=== PATIENT | female | born 1945 | race Caucasian/White ===

== ENCOUNTER 2016-05-06 09:19 | Inpatient (IN) | payer MEDICARE, OTHER ==
[~2016-05-06] VITALS: Ht 149.1 cm; Wt 57.0 kg
[2016-05-06] MEDS ORDERED: FOLI5CAP PO (09:43)
[2016-05-06] MEDS ORDERED: CALC1TAB63 PO (09:43)
[2016-05-06] MEDS ORDERED: METH2.5T PO (09:43)
[2016-05-23] MEDS ORDERED: HYDR-3288 PO (07:25)
[2016-05-23] MEDS ORDERED: ENOX40P SQ (07:26)
[2016-05-23] MEDS ORDERED: ACET-703 PO (07:48)
[2016-05-23 07:50] VITALS: BP 153/86; PULSE 80; RESP 20; TEMP 97.8; O2SAT 98
[2016-05-23] MEDS ORDERED: VANCOMYCIN 1000 MG/NS 250 ML (for <70 kg) IV SCH ×2 (08:00)
[2016-05-23] MEDS ORDERED: INSULIN HUMAN REGULAR 1,000 UNITS/10 ML VIAL SQ PRN (08:00)
[2016-05-23] MEDS ORDERED: LACTATED RINGER'S 1000 ML IV SCH (08:00)
[2016-05-23] MEDS ORDERED: CHLORHEXIDINE GLUCONATE 4% SOLN 120 ML BTL TOP SCH (08:00)
[2016-05-23] MEDS ORDERED: POVIDONE IODINE 7.5% SCRUB 118 ML BOTTLE TOP SCH (08:00)
[2016-05-23] MEDS ORDERED: METOPROLOL TARTRATE 25 MG TAB PO PRN (08:00)
[2016-05-23] MEDS ORDERED: ceFAZolin 2 GM PREMIX 50 ML IV SCH (08:00)
[2016-05-23] MEDS ORDERED: SODIUM CHLORID 0.9% 500 ML IV SCH (08:00)
[2016-05-23] MEDS ORDERED: EXPAREL PERI-ARTICULAR INJECTION (TOTAL VOL. 60 ML) P-ARTICULR SCH ×2 (09:00)
[2016-05-23] MEDS ORDERED: TRANEXAMIC ACID IV SCH (09:00)
[2016-05-23] MEDS ORDERED: TRANEXAMIC PERI-ARTICULAR 3,000 MG/NS 100 ML P-ARTICULR SCH ×2 (09:00)
[2016-05-23] MEDS ORDERED: SODIUM CHLORIDE 0.9% IV SCH (09:00)
[2016-05-23] MEDS: SODIUM CHLOR 0.9% 1000 ML INJ 1,000 ML IV SCH (09:01)
[2016-05-23] MEDS ORDERED: MORPHINE SULFATE 4 MG/ML INJ IV PUSH PRN (09:15)
[2016-05-23] MEDS ORDERED: MAGNESIUM HYDROXIDE SUSP 30 ML CUP PO PRN (09:15)
[2016-05-23] MEDS ORDERED: ZOLPIDEM TARTRATE 5 MG TAB PO PRN (09:15)
[2016-05-23] MEDS ORDERED: NALOXONE HCL 0.4 MG/ML AMP IV PRN (09:15)
[2016-05-23] MEDS ORDERED: Post-op Orders (for Pharmacy) MISC XX ONE (09:15)
[2016-05-23] MEDS ORDERED: BISACODYL 10 MG SUPP PR PRN (09:15)
[2016-05-23] MEDS ORDERED: ACETAMINOPHEN/HYDROcodone 325 MG/7.5 MG TAB PO PRN (09:15)
[2016-05-23] MEDS ORDERED: diphenhydrAMINE HCL 50 MG/ML VIAL IV PRN (09:15)
[2016-05-23] MEDS ORDERED: SODIUM CHLORIDE 0.9% FLUSH 5 ML FLUSH IVF PRN (09:15)
[2016-05-23] MEDS ORDERED: ALUMINUM/MAGNESIUM/SIMETH 30 ML CUP PO PRN (09:15)
[2016-05-23] MEDS ORDERED: GENTAMICIN SULFATE 80 MG/2 ML VIAL ONE (09:30)
[2016-05-23] MEDS ORDERED: DEXAMETHASONE SOD PHOS 4 MG/ML VIAL ONE (09:54)
[2016-05-23] MEDS ORDERED: FAMOTIDINE 20 MG/2 ML VIAL ONE (10:03)
[2016-05-23] MEDS ORDERED: ACETAMINOPHEN 1000 MG/100 ML VIAL IV ONE (10:03)
[2016-05-23] MEDS ORDERED: KETAMINE HCL 500 MG/5 ML VIAL ONE (10:03)
[2016-05-23] MEDS ORDERED: LACTATED RINGER'S 1000 ML INJ 1,000 ML IV ONE (12:00)
[2016-05-23] MEDS ORDERED: ePHEDrine/NS 50 MG/5 ML SYR IV ONE (12:00)
[2016-05-23] MEDS ORDERED: NEOSTIGMINE 3 MG/3 ML SYR IV ONE (12:00)
[2016-05-23] MEDS ORDERED: PROPOFOL 200 MG/20 ML AMP IV ONE (12:00)
[2016-05-23] MEDS ORDERED: PHENYLEPH/NS 1000 MCG/10 ML SYR IV ONE (12:00)
[2016-05-23] MEDS ORDERED: ONDANSETRON HCL 4 MG/2 ML VIAL IV PUSH ONE (12:00)
[2016-05-23] MEDS ORDERED: *morphine SULFATE 8 MG/ML PERIprocedure ONLY ONE ×2 (12:23→12:34)
[2016-05-23] MEDS ORDERED: fentaNYL CITRATE 250 MCG/5 ML AMP ONE (12:25)
[2016-05-23] MEDS ORDERED: MIDAZOLAM HCL 2 MG/2 ML VIAL ONE (12:25)
[2016-05-23] MEDS ORDERED: DO NOT ADM ANY ANTICOAGULANT DRUGS XX PRN (14:00)
[2016-05-23 14:39] VITALS: BP 114/64; PULSE 89; RESP 14; TEMP 95.5; O2SAT 97
--- NOTE | 2016-05-23 14:48 | RADRPT ---
EXAM DATE/TIME: 05/23/2016 13:50 [facility] COMPARISON: No previous studies available for comparison. INDICATIONS : Post op left hip surgery. MEDICAL HISTORY : None. SURGICAL HISTORY : None. ENCOUNTER: Initial ACUITY: 1 day PAIN SCORE: Non-responsive. LOCATION: Bilateral chest FINDINGS: The patient is status post a total hip arthroplasty with a bipolar prosthesis. Prosthesis is well-sea macey. Alignment is anatomic. A fracture is not appreciated. CONCLUSION: Anatomic alignment. Morris Cottrell MD FACR Board Certified Radiologist. This report was verified electronically.
[2016-05-23] MEDS: ACETAMINOPHEN/HYDROcodone 325 MG/7.5 MG TAB PO PRN (15:23)
[2016-05-23] MEDS: ONDANSETRON HCL 4 MG/2 ML VIAL IVP PRN (15:43)
--- NOTE | 2016-05-23 17:16 | RADRPT ---
EXAM DATE/TIME: 05/23/2016 10:59 [facility] COMPARISON: HIP LEFT (AP&LAT 2/3VWS) W AP PELVIS, May 23, 2016, 13:50. INDICATIONS : Left total hip arthroplasty. OR. MEDICAL HISTORY : None. SURGICAL HISTORY : None. ENCOUNTER: Initial ACUITY: 1 day PAIN SCORE: Non-responsive. LOCATION: Left hip FINDINGS: Matrix views in the OR reveal placement of a total hip prosthesis well seated. CONCLUSION: Total hip prosthesis well seated Ayden Moctezuma MD on May 23, 2016 at 17:13 Board Certified Radiologist. This report was verified electronically.
[2016-05-23 18:33] VITALS: O2SAT 97
--- NOTE | 2016-05-23 18:40 | PD.CONS ---
[facility] By Dr. Kendrick Williamson Reason for Consult medical management Primary Care Physician Minda Elizondo MD Diagnoses: (1) Primary localized osteoarthrosis, pelvic region and thigh (2) Rheumatoid arthritis (3) Status post total hip replacement, left History of Present Illness 71-year-old female with history of rheumatoid arthritis, osteoarthritis, seen status post left total hip arthroplasty 05/23/[address] Kendrick Williamson, consulted for medical management. Patient reports for a while now she has been battling worsening left hip pain, difficulty with ambulation. She has now underwent left total hip replacement as above. She states currently she has no hip pain. One week ago she bent over in the shower and has had some mild low back pain however this is improving. She otherwise denies any medical complaints including no headache, lightheadedness, dizziness, chest pain, shortness of breath, abdominal pain, or urinary complaints. She did have one episode of vomiting after surgery. She takes methotrexate and folic acid for her rheumatoid arthritis, however has been off of this for surgery, and was told by her physician she needs to be off of this for 1 month. She otherwise denies any other medical problems. Review of Systems Constitutional: DENIES: Fever, Chills, Dizziness Endocrine: DENIES: Polydipsia, Polyuria, Polyphagia Eyes: DENIES: Diplopia, Vision loss, Double Vision Ears, nose, mouth, throat: DENIES: Throat pain, Ear Pain, Odynophagia Respiratory: DENIES: Cough, Shortness of breath Cardiovascular: DENIES: Chest pain, Palpitations, Dyspnea on Exertion Gastrointestinal: COMPLAINS OF: Vomiting, DENIES: Abdominal pain, Constipation , Diarrhea, Nausea Genitourinary: DENIES: Urinary frequency, Urgency, Dysuria Musculoskeletal: COMPLAINS OF: Back pain, DENIES: Joint pain, Neck pain Integumentary: DENIES: Abnormal pigmentation, Pruritus, Rash Hematologic/lymphatic: DENIES: Bruising, Lymphadenopathy Immunologic/allergic: DENIES: Eczema, Urticaria Neurologic: DENIES: Abnormal gait, Headache, Localized weakness, Paresthesias Psychiatric: DENIES: Anxiety, Depression Past Family Social History Allergies: Coded Allergies: No Known Allergies (Unverified , 05/23/16) Past Medical History Rheumatoid arthritis Osteoarthritis Past Surgical History Left total hip arthroplasty 05/23/16 Left wrist carpal tunnel release 20 years ago Tonsillectomy as a child Reported Medications Methotrexate Tylenol as needed Ferdinand as needed Folic acid Active Ordered Medications Current Medications Medications (Trade) Dose Ordered Sig/Kimberly Route Start Time Stop Time Status Last Admin (Betadine 7.5% Scrub) 1 applic ONCE TOP 05/23/16 08:00 05/26/16 07:59 Chlorhexidine Gluconate 1 applic 1 applic ONCE TOP 05/23/16 08:00 05/26/16 07:59 (NS 1000 ml Inj) 1,000 ml @ 100 mls/hr Q10H IV 05/23/16 09:01 05/23/16 09:01 (NS Flush) 2 ml UNSCH PRN IVF 05/23/16 09:15 IV Flush 2 ml 2 ml BID IVF 05/23/16 21:00 (Ancef Inj/NS Inj) 100 ml @ 200 mls/hr Q6H IV 05/23/16 15:00 05/24/16 03:29 05/23/16 15:23 (Lovenox Inj) 40 mg Q24H SQ 05/24/16 11:13 06/02/16 11:14 (Morphine Inj) 3 mg Q3H PRN IV PUSH 05/23/16 09:15 (Ferdinand 7.5-325 Mg) 1 tab Q4H PRN PO 05/23/16 09:15 05/23/16 15:23 (Ferdinand 7.5-325 Mg) 2 tab Q4H PRN PO 05/23/16 09:15 (Theragran M Tab) 1 tab BID PO 05/24/16 21:00 07/23/16 20:59 (Zofran Inj) 4 mg Q6H PRN IVP 05/23/16 09:15 05/23/16 15:43 (Colace) 100 mg BID PO 05/24/16 21:00 (Mag-Al Plus Susp Liq) 30 ml Q6H PRN PO 05/23/16 09:15 (Ambien) 5 mg HS PRN PO 05/23/16 09:15 (Dulcolax Supp) 10 mg DAILY PRN RI 05/23/16 09:15 (Milk Of Magnesia Liq) 30 ml DAILY PRN PO 05/23/16 09:15 (Narcan Inj) 0.4 mg UNSCH PRN IV 05/23/16 09:15 (Benadryl Inj) 25 mg Q6H PRN IV 05/23/16 09:15 Miscellaneous Information ALL NURSING DEPARTME... UNSCH PRN XX 05/23/16 14:00 05/24/16 13:59 Family History Mother with colorectal cancer Sister with breast cancer Social History Denies any tobacco, alcohol, or illicit drug use. Physical Exam Vital Signs Vital Signs Date Time Temp Pulse Resp B/P Pulse Ox O2 Delivery O2 Flow Rate FiO2 05/23/16 14:39 95.5 89 14 114/64 97 05/23/16 14:00 73 12 105/60 98 Room Air 05/23/16 13:30 72 13 113/62 98 Room Air 05/23/16 13:00 73 12 117/68 95 Room Air 05/23/16 12:45 79 14 92 Room Air 05/23/16 12:30 86 12 117/70 96 Room Air 05/23/16 12:18 97.5 97 14 142/81 99 Room Air 05/23/16 07:50 97.8 80 20 153/86 98 Physical Exam GENERAL: Well-nourished, well-developed very pleasant elderly female patient in [facility]. SKIN: Warm and dry. No rash. HEAD: Normocephalic. Atraumatic. EYES: Pupils equal and round. No scleral icterus. No injection or drainage. ENT: No nasal bleeding or discharge. Mucous membranes pink and moist. NECK: Supple. Trachea midline. CARDIOVASCULAR: Regular rate and rhythm. S1, S2 noted. No murmur appreciated. RESPIRATORY: No accessory muscle use. Clear to auscultation. Breath sounds equal bilaterally. GASTROINTESTINAL: Abdomen soft, non-tender, nondistended. Normoactive bowel sounds x4. MUSCULOSKELETAL: No obvious deformities. Extremities without clubbing, cyanosis , or edema. Left lateral hip with surgical dressing in place, CDI. 2+ bilateral pedal pulses, bilateral feet warm. NEUROLOGICAL: Awake and alert. No obvious cranial nerve deficits. Motor grossly within normal limits. Moves all extremities spontaneously. Normal speech. PSYCHIATRIC: Appropriate mood and affect; insight and judgment normal. Laboratory Laboratory Tests Test 05/23/16 05/23/16 07:44 08:55 Blood Type AB NEGATIVE AB NEGATIVE Antibody Screen POSITIVE Crossmatch Leukocyte-Reduced Red Blood Cells Blood Bank Comment Antibody Identification Anti-D Imaging Last Impressions Hip and Pelvis X-Ray 05/23/16 0901 Signed Impressions: Service Date/Time: Monday, May 23, 2016 13:50 - CONCLUSION: Anatomic alignment. Morris Cottrell MD Hip X-Ray 05/23/16 0000 Signed Impressions: Service Date/Time: Monday, May 23, 2016 10:59 - CONCLUSION: Total hip prosthesis well seated Ayden Moctezuma MD Assessment and Plan Problem List: (1) Primary localized osteoarthrosis, pelvic region and thigh ICD Code: M16.10 Status: Acute (2) Status post total hip replacement, left ICD Code: Z96.642 Status: Acute (3) Rheumatoid arthritis ICD Code: M06.9 Status: Acute Assessment and Plan 71-year-old female with history of rheumatoid arthritis, osteoarthritis, seen status post left total hip arthroplasty 05/23/[address] Kendrick Williamson, consulted for medical management. Osteoarthritis s/p Left Total Hip Arthroplasty 05/23/[address] Williamson. Pain management wiuth Ferdinand and IV Morphine prn. DVT prophylaxis with Lovenox per ortho. PT consult, progress to full weightbearing. Post Op Nausea/Vomiting: emesis x1. Likely related to anesthesia. Zofran prn. IVF until tolerating oral intake. Rheumatoid Arthritis: off methotrexate/folate per physician [id number]. DVT Prophylaxis: Lovenox, per ortho Written by Otilia Carias, acting as scribe for Dr. London on 05/23/16 at 18: 39. Discussed Condition With Patient Medical Decision Making MDM Remarks The documentation accurately reflects the work performed [id number] by me on at 18:39. Otilia Carias PA-C May 23, 2016 18:40 Artemio Alexis MD May 24, 2016 09:55
[2016-05-23 20:20] VITALS: BP 117/58; PULSE 87; RESP 18; TEMP 95.6; O2SAT 93
[2016-05-23] MEDS: SODIUM CHLORIDE 0.9% FLUSH 5 ML FLUSH IVF SCH (21:00)
[2016-05-24] VITALS (7 sets, daily range): BP systolic 90–117; BP diastolic 51–58; PULSE 86–95; RESP 16–18; TEMP 96.2–99.5; O2SAT 94–99
[2016-05-24] MEDS: SODIUM CHLOR 0.9% 1000 ML INJ 1,000 ML IV SCH ×2 (02:02→05:01)
[2016-05-24] MEDS: ONDANSETRON HCL 4 MG/2 ML VIAL IVP PRN (02:07)
[2016-05-24 06:09] LABS: HEMATOCRIT 26.1 % (35.0-46.0); MEAN CELL VOLUME 85.8 FL (80.0-100.0); MEAN CORPUSCULAR HEMOGLOBIN 29.2 PG (27.0-34.0); MEAN CORPUSCULAR HGB CONC 34.1 % (32.0-36.0); PLATELET COUNT 163 TH/MM3 (150-450); RED BLOOD COUNT 3.04 MIL/MM3 (4.00-5.30); RED CELL DISTRIBUTION WIDTH 12.7 % (11.6-17.2); REVIEW FLAG FINAL; WHITE BLOOD COUNT 8.8 TH/MM3 (4.0-11.0)
--- NOTE | 2016-05-24 08:36 | PD.ORT.PN ---
Subjective Post Op Day #: 1 Subjective Remarks minimal pain. Objective Vitals Vital Signs Date Time Temp Pulse Resp B/P Pulse Ox O2 Delivery O2 Flow Rate FiO2 05/24/16 08:23 95 21 05/24/16 04:00 99.5 92 18 90/51 95 05/24/16 00:30 97.1 86 18 105/57 97 05/23/16 20:20 95.6 87 18 117/58 93 05/23/16 18:33 97 21 05/23/16 14:39 95.5 89 14 114/64 97 05/23/16 14:00 73 12 105/60 98 Room Air 05/23/16 13:30 72 13 113/62 98 Room Air 05/23/16 13:00 73 12 117/68 95 Room Air 05/23/16 12:45 79 14 92 Room Air 05/23/16 12:30 86 12 117/70 96 Room Air 05/23/16 12:18 97.5 97 14 142/81 99 Room Air I/O 05/23/16 05/23/16 05/23/16 05/24/16 05/24/16 05/24/16 07:00 15:00 23:00 07:00 15:00 23:00 Intake Total 1100 ml 1054 ml 809 ml Output Total 760 ml 500 ml 375 ml Balance 340 ml 554 ml 434 ml Intake Oral 240 ml 240 ml IV Total 814 ml 569 ml Other 1100 ml Output Urine Total 550 ml 500 ml 375 ml Estimated Blood Loss 150 ml Other 60 ml # Bowel Movements 0 0 Result Diagram: 05/24/16 0543 Imaging Last 24 hours Impressions Hip and Pelvis X-Ray 05/23/16 0901 Signed Impressions: Service Date/Time: Monday, May 23, 2016 13:50 - CONCLUSION: Anatomic alignment. Morris Cottrell MD Objective Remarks in bed, nad incision no erythema, no drainage mild ecchymosis thigh soft neg homans nvi Assessment & Plan Ortho Post Op Day #: 1 Problem List: Assessment and Plan s/p L ANDREW - anterior approach wbat daily dressing changes lovenox d/c planning home with [facility] and pt - cleared today if does well in PT has walker and elevated commode at home rx in chart f/up dr. gamez 2 weeks Kendrick Lopez May 24, 2016 08:36
--- NOTE | 2016-05-24 08:38 | HHI.DCPOC ---
Discharge Care Plan Diagnosis: (1) Primary localized osteoarthrosis, pelvic region and thigh Your Health Problems Are: Difficulty with ADL Goals to Promote Your Health * To prevent worsening of your condition and complications * To maintain your health at the optimal level Directions to Meet Your Goals Take your medications as prescribed Follow your dietary instruction Follow activity as directed Keep your appointments as scheduled Take your immunizations and boosters as scheduled If your symptoms worsen call your PCP, if no PCP go to Urgent Care Center or Emergency Room Smoking is Dangerous to Your Health. Avoid second hand smoke Call the 24-hour hour crisis hotline for domestic abuse at Kendrick Lopez May 24, 2016 08:38
--- NOTE | 2016-05-24 08:39 | HHI.FF ---
Face to Face Verification Diagnosis: (1) Primary localized osteoarthrosis, pelvic region and thigh Physical Therapy Gait training, Safety evaluation, Transfer training, bed to chair Hip: Total hip, Protocol: Left, Progress to weight bearing Left LE Weight Bearing: WB as tolerated Nursing RN: 3 days/week x 2 weeks Nursing: Naomi teaching, Dressing changes Dressing Changes: Daily dressing change I have seen patient Anh Watson on 05/24/16. My clinical findings support the need for the requested home health care services because: Limited ability to care for self High risk of falls I certify that my clinical findings support that this patient is homebound because: Post-op weakness Unsteady gait/balance Kendrick Lopez May 24, 2016 08:39
[2016-05-24] MEDS: SODIUM CHLORIDE 0.9% FLUSH 5 ML FLUSH IVF SCH ×2 (10:14→20:04)
[2016-05-24] MEDS ORDERED: WALKER WHEELS/F1 MIS (10:42)
[2016-05-24 11:49] LABS: ALT (GPT) 17 U/L (10-53); ANION GAP 8 MEQ/L (5-15); AST (GOT) 23 U/L (15-37); BICARBONATE 25.2 MEQ/L (21.0-32.0); BLOOD UREA NITROGEN 11 MG/DL (7-18); CHLORIDE 104 MEQ/L (98-107); GLOMERULAR FILTRATION RATE 53 ML/MIN (>89); POTASSIUM 3.8 MEQ/L (3.5-5.1); SODIUM (NA) 137 MEQ/L (136-145)
[2016-05-24 11:52] LABS: ALKALINE PHOSPHATASE 41 U/L (45-117); TOTAL BILIRUBIN ADULT 0.3 MG/DL (0.2-1.0)
[2016-05-24] MEDS: ENOXAPARIN SODIUM 40 MG/0.4 ML SYRINGE SQ SCH (12:00)
[2016-05-24] MEDS: ACETAMINOPHEN/HYDROcodone 325 MG/7.5 MG TAB PO PRN ×2 (14:06→21:06)
--- NOTE | 2016-05-24 16:30 | HHI.PR ---
Subjective Remarks Deferred entry. Patient seen earlier at 10:30 AM. Patient states she was able to ambulate. Pain is controlled. Denies fevers or chills, denies chest pain or shortness of breath. Patient has stable vital signs Objective Vitals Vital Signs Date Time Temp Pulse Resp B/P Pulse Ox O2 Delivery O2 Flow Rate FiO2 05/24/16 12:00 97.6 95 16 104/57 97 05/24/16 08:23 95 21 05/24/16 08:07 98.8 90 16 106/56 94 05/24/16 04:00 99.5 92 18 90/51 95 05/24/16 00:30 97.1 86 18 105/57 97 05/23/16 20:20 95.6 87 18 117/58 93 05/23/16 18:33 97 21 I/O 05/23/16 05/23/16 05/23/16 05/24/16 05/24/16 05/24/16 07:00 15:00 23:00 07:00 15:00 23:00 Intake Total 1100 ml 1054 ml 809 ml Output Total 760 ml 500 ml 375 ml Balance 340 ml 554 ml 434 ml Intake Oral 240 ml 240 ml IV Total 814 ml 569 ml Other 1100 ml Output Urine Total 550 ml 500 ml 375 ml Estimated Blood Loss 150 ml Other 60 ml # Bowel Movements 0 0 Result Diagram: 05/24/16 0543 05/24/16 1110 Imaging Last Impressions Hip and Pelvis X-Ray 05/23/16 0901 Signed Impressions: Service Date/Time: Monday, May 23, 2016 13:50 - CONCLUSION: Anatomic alignment. Morris Cottrell MD Hip X-Ray 05/23/16 0000 Signed Impressions: Service Date/Time: Monday, May 23, 2016 10:59 - CONCLUSION: Total hip prosthesis well seated Ayden Moctezuma MD Objective Remarks GENERAL: Well-nourished, well-developed very pleasant elderly female patient in [facility]. SKIN: Warm and dry. No rash. HEAD: Normocephalic. Atraumatic. EYES: Pupils equal and round. No scleral icterus. No injection or drainage. ENT: No nasal bleeding or discharge. Mucous membranes pink and moist. NECK: Supple. Trachea midline. CARDIOVASCULAR: Regular rate and rhythm. S1, S2 noted. No murmur appreciated. RESPIRATORY: No accessory muscle use. Clear to auscultation. Breath sounds equal bilaterally. GASTROINTESTINAL: Abdomen soft, non-tender, nondistended. Normoactive bowel sounds x4. MUSCULOSKELETAL: No obvious deformities. Extremities without clubbing, cyanosis , or edema. Left lateral hip with surgical dressing in place, CDI. 2+ bilateral pedal pulses, bilateral feet warm. NEUROLOGICAL: Awake and alert. No obvious cranial nerve deficits. Motor grossly within normal limits. Moves all extremities spontaneously. Normal speech. PSYCHIATRIC: Appropriate mood and affect; insight and judgment normal. Medications and IVs Current Medications Medications (Trade) Dose Ordered Sig/Kimberly Route Start Time Stop Time Status Last Admin (Betadine 7.5% Scrub) 1 applic ONCE TOP 05/23/16 08:00 05/26/16 07:59 Chlorhexidine Gluconate 1 applic 1 applic ONCE TOP 05/23/16 08:00 05/26/16 07:59 (NS 1000 ml Inj) 1,000 ml @ 100 mls/hr Q10H IV 05/23/16 09:01 05/24/16 02:02 (NS Flush) 2 ml UNSCH PRN IVF 05/23/16 09:15 (NS Flush) 2 ml BID IVF 05/23/16 21:00 05/24/16 10:14 (Lovenox Inj) 40 mg Q24H SQ 05/24/16 11:13 06/02/16 11:14 05/24/16 12:00 (Morphine Inj) 3 mg Q3H PRN IV PUSH 05/23/16 09:15 05/24/16 02:02 (Hubbard 7.5-325 Mg) 1 tab Q4H PRN PO 05/23/16 09:15 05/24/16 14:06 (Hubbard 7.5-325 Mg) 2 tab Q4H PRN PO 05/23/16 09:15 (Theragran M Tab) 1 tab BID PO 05/24/16 21:00 07/23/16 20:59 (Zofran Inj) 4 mg Q6H PRN IVP 05/23/16 09:15 05/24/16 02:07 (Colace) 100 mg BID PO 05/24/16 21:00 (Mag-Al Plus Susp Liq) 30 ml Q6H PRN PO 1/30/17 09:15 (Ambien) 5 mg HS PRN PO 05/23/16 09:15 (Dulcolax Supp) 10 mg DAILY PRN IN 05/23/16 09:15 (Milk Of Magnesia Liq) 30 ml DAILY PRN PO 05/23/16 09:15 (Narcan Inj) 0.4 mg UNSCH PRN IV 05/23/16 09:15 (Benadryl Inj) 25 mg Q6H PRN IV 05/23/16 09:15 Urinary Catheter: No Vascular Central Line Catheter: No A/P Problem List: (1) Primary localized osteoarthrosis, pelvic region and thigh ICD Code: M16.10 Status: Acute (2) Status post total hip replacement, left ICD Code: Z96.642 Status: Acute (3) Rheumatoid arthritis ICD Code: M06.9 Status: Acute Assessment and Plan 71-year-old female with history of rheumatoid arthritis, osteoarthritis, seen status post left total hip arthroplasty 05/23/[address] Kendrick Williamson, consulted for medical management. Osteoarthritis s/p Left Total Hip Arthroplasty 05/23/[address] Williamson. Pain management with Hubbard and IV Morphine prn. DVT prophylaxis with Lovenox per ortho. progress to full weightbearing. Continue physical therapy. Continue stool softener. Post Op Nausea/Vomiting: emesis x1. Likely related to anesthesia. Zofran prn. IVF until tolerating oral intake. Okay to discontinue IV fluids since nausea resolved and patient tolerating oral diet. Rheumatoid Arthritis: off methotrexate/folate per physician [id number]. DVT Prophylaxis: Lovenox, per ortho Artemio Alexis MD May 24, 2016 16:08
[2016-05-24] MEDS: DOCUSATE SODIUM 100 MG CAP PO SCH (19:59)
[2016-05-24] MEDS: MULTIVITAMINS/MINERALS THERAPEUTIC TAB PO SCH (19:59)
[2016-05-25 00:36] VITALS: BP 115/58; PULSE 98; RESP 18; TEMP 99.8; O2SAT 94
[2016-05-25] MEDS: ACETAMINOPHEN/HYDROcodone 325 MG/7.5 MG TAB PO PRN ×3 (05:18→13:04)
[2016-05-25 07:20] LABS: HEMATOCRIT 24.6 % (35.0-46.0); MEAN CELL VOLUME 86.7 FL (80.0-100.0); MEAN CORPUSCULAR HEMOGLOBIN 29.4 PG (27.0-34.0); MEAN CORPUSCULAR HGB CONC 33.9 % (32.0-36.0); PLATELET COUNT 140 TH/MM3 (150-450); RED BLOOD COUNT 2.84 MIL/MM3 (4.00-5.30); RED CELL DISTRIBUTION WIDTH 12.9 % (11.6-17.2); REVIEW FLAG FINAL; WHITE BLOOD COUNT 7.1 TH/MM3 (4.0-11.0)
[2016-05-25] MEDS: DOCUSATE SODIUM 100 MG CAP PO SCH (07:23)
[2016-05-25] MEDS: MULTIVITAMINS/MINERALS THERAPEUTIC TAB PO SCH (07:23)
[2016-05-25 08:00] VITALS: BP 126/69; PULSE 99; RESP 18; TEMP 98.4; O2SAT 95
--- NOTE | 2016-05-25 08:02 | PD.ORT.PN ---
Subjective Post Op Day #: 1 Subjective Remarks minimal pain. feeling better. Objective Vitals Vital Signs Date Time Temp Pulse Resp B/P Pulse Ox O2 Delivery O2 Flow Rate FiO2 05/25/16 00:36 99.8 98 18 115/58 94 05/24/16 20:07 99.0 89 18 117/58 99 05/24/16 16:00 96.2 87 17 115/57 97 05/24/16 12:00 97.6 95 16 104/57 97 05/24/16 08:23 95 21 05/24/16 08:07 98.8 90 16 106/56 94 I/O 05/24/16 05/24/16 05/24/16 05/25/16 05/25/16 05/25/16 07:00 15:00 23:00 07:00 15:00 23:00 Intake Total 809 ml 480 ml 480 ml 480 ml Output Total 375 ml 400 ml Balance 434 ml 80 ml 480 ml 480 ml Intake Oral 240 ml 480 ml 480 ml 480 ml IV Total 569 ml Output Urine Total 375 ml 400 ml # Voids 1 5 2 # Bowel Movements 0 0 0 Result Diagram: 05/25/16 0658 05/24/16 1110 Imaging Last 24 hours Impressions Hip and Pelvis X-Ray 05/23/16 0901 Signed Impressions: Service Date/Time: Monday, May 23, 2016 13:50 - CONCLUSION: Anatomic alignment. Morris Cottrell MD Objective Remarks in bed, nad incision no erythema, no drainage mild ecchymosis thigh soft neg homans nvi Assessment & Plan Ortho Post Op Day #: 2 Problem List: Assessment and Plan s/p L ANDREW - anterior approach wbat daily dressing changes lovenox d/c planning home with [facility] and pt - cleared today IS rx in chart f/up dr. gamez 2 weeks Kendrick Lopez May 25, 2016 08:02
[2016-05-25] MEDS: ENOXAPARIN SODIUM 40 MG/0.4 ML SYRINGE SQ SCH (11:55)
[2016-05-25 12:22] VITALS: O2SAT 97
--- NOTE | 2016-05-26 12:47 | MP ---
cc: MAREN MARTIN M.D. DATE OF SURGERY 05/23/2069 PREOPERATIVE DIAGNOSIS Left hip osteoarthritis. POSTOPERATIVE DIAGNOSES Left hip osteoarthritis. PROCEDURE Left total hip arthroplasty. SURGEON Dr. Maren Martin EMBLEM CUTTER Joao Lopez PA-C ANESTHESIA General. ESTIMATED BLOOD LOSS 100 cc. COMPLICATIONS None. IMPLANTS USED DePuy Corail size 12 Press-Fit standard offset femoral stem, size 48-mm solid [place] Gription cup, size 32-mm neutral highly cross-linked polyethylene liner, size 32-mm ceramic head, +5 neck. JUSTIFICATION: This patient is 71-year-old female with history of severe osteoarthritis involving the left hip. She has severe, disabling pain with standing, walking, ambulation, weightbearing activities, even severe pain at rest. She has failed greater then three months of nonoperative, conservative treatment to include medications, physical therapy, ambulatory assistive aids, home exercise program, activity modification. The patient is not overweight. X-rays of the left hip reveal severe end-stage osteoarthritis with [id number] joint space narrowing, subchondral sclerosis, subchondral cysts, osteophyte formation and subluxation. The patient was counseled as to the risks, benefits and alternatives to total hip arthroplasty. The risks were discussed which include but are not limited to anesthesia, bleeding, infection, damage to nerves, damage to blood vessels, pain, stiffness, leg length discrepancies, dislocation, blood clots, pulmonary embolism and even . The patient's pain was severe. She favored the benefits over the risks and did wish to proceed with surgery. PROCEDURE IN DETAIL Written consent was obtained. The patient was identified by name and taken to the operating room, placed supine on the operating room table. General anesthesia was administered as well as 2 grams of IV Ancef and 1 gram of IV vancomycin. The left and right feet were placed in the padded traction boots. All bony prominences and pressure points were well padded. The left hip and left lower extremity were prepped and draped using isopropyl alcohol, Hibiclens solution and Chloraprep solution. After an appropriate time-out was performed, a longitudinal incision was made over the anterolateral aspect of the left hip. The deep fascial layer was incised, dissection carried over the tensor fascia jose enrique, beneath the rectus femoris to allow exposure of the anterior hip capsule. A capsulotomy incision was performed. An oscillating saw was used to perform a femoral neck cut. The osteoarthritic femoral head and neck component was removed. A 10-blade scalpel was used to excise the labrum and sequential reaming began at size 44, was carried through to size 48. Subsequently, a solid [place] Gription cut was implanted in approximately 45 degrees of abduction and 10 degrees of anteversion. There was good purchase and fixation after insertion of the cup. A screw hole eliminator was placed. The neutral liner was impacted in place and tested for stability. The femur was externally rotated, extended and adducted. The capsule was released off the inner surface of the greater trochanter to allow for elevation and lateralization of the femur. A box-cutting osteotome was used to gain entrance into the intramedullary canal of the femur. This was followed by sequential broaching up to size 12. A calcar planer was used to plane the calcar. Trial head and neck combinations were evaluated and the final components were implanted with the +5 neck. Fluoroscopic imaging showed appropriate implantation of components. Soft tissue tension felt appropriate. Stability was excellent. With the leg externally rotated to 70 degrees, the leg could be extended all the way down to the ground without evidence of anterior instability or impingement. The surgical wound was thoroughly irrigated with sterile saline solution, pulse lavage with antibiotic impregnated solution. The fascial layer was closed with #1 Vicryl suture, the subcutaneous layer with 2-0 Vicryl suture. The skin was closed with Dermabond. Sterile dressings were applied. The patient tolerated the procedure well. No intraoperative complications noted. Joao Lopez, physician anesthesiologists' assistant certified, was present during the entire procedure to include patient positioning and the procedure itself. The medical necessity of a physician anesthesiologists' assistant was indicated in this case due to the complexity of the procedure. He assisted with appropriate manipulation of the leg and also retraction of muscle, tendon, bone and neurovascular structures. He assisted with both preparation of bone and implantation of the prosthetic replacement. MD NIKA Ramirez/DAVIDE /12:06 PM /12:31 PM
--- NOTE | 2016-05-31 08:22 | MD ---
cc: MAREN MARTIN ADMISSION DATE: 05/23/2016 DISCHARGE DATE: 05/25/2016 ADMITTING DIAGNOSIS Severe degenerative osteoarthritis, left hip. DISCHARGE DIAGNOSIS Severe degenerative osteoarthritis, left hip. HISTORY OF PRESENT ILLNESS Mrs. Watson is a 71-year-old female who presented to the [facility] for evaluation by Dr. Maren Martin regarding her severe and progressive left hip pain. The patient states the pain has been bothering her for greater than one year duration for which she has been treated for this ailment as well. She states it is a severe constant aching sensation, is aggravated by weightbearing activities. She has no alleviating factors at this point in time. She notes in the past she has tried medications, assistive devices, physical therapy, as well as cortisone injection without significant relief of symptoms. The patient does have x-ray evidence of severe degenerative osteoarthritis of the left hip. While in the office the patient was counseled on her diagnosis and treatment options. The risks, benefits and indications of all were discussed in great detail. The patient did elect to proceed with surgical intervention to include a left total hip arthroplasty. Date of surgery 05/23/2016, left total hip arthroplasty anterior approach. POST-OP After surgery the patient was admitted to [facility] where she received appropriate medical management, pain control and DVT prophylaxis as well as physical therapy. Once being discharged from the hospital the patient is cleared to go home where she received home health care and home physical therapy. She is in stable condition. She can weight bear as tolerated with anterior hip precautions. She is to receive daily dressing changes and has been instructed on appropriate wound care management. The patient has been provided prescriptions for pain control as well as DVT prophylaxis medication. The patient has also been provided a follow-up appointment to see Dr. Maren Martin in the office in approximately two weeks from the date of surgery. The patient has asked appropriate questions which have all been answered. The patient is cleared for discharge. Dictated by: Maren Lopez PA-C MD NIKA Ramirez/CIRILO /8:05 AM /8:17 AM
== END 2016-05-25 13:24 | disposition home health service (06) | DRG 470 ==
LOC: HSDI 05-23 07:06 → EDUNIT# 05-23 10:00 → N06A 05-23 14:24
PROVIDERS: ADMIT Orthopaedic Surgery Sports Medicine; ATTEND Orthopaedic Surgery Sports Medicine
PROC: 0SRB04A Replacement of Left Hip Joint with Ceramic on Polyethylene Synthetic Substitute, Uncemented, Open Approach (ICD-10-PCS; principal; 2016-05-23 10:07)
DX: M16.12 Unilateral primary osteoarthritis, left hip (principal); M06.9 Rheumatoid arthritis, unspecified; Z80.3 Family history of malignant neoplasm of breast; Z80.0 Family history of malignant neoplasm of digestive organs; R11.2 Nausea with vomiting, unspecified
CPT/HCPCS: 73502; 76000; 80053; 85027; 86077; 86850; 86870; 86900; 86901; 86920; 86922; 94150; C1776; C9290; J0131; J0690; J1100; J1580; J1650; J2250; J2270; J2370; J2405; J2710; J3010; J3370; J7030; J7050; J7120

== ENCOUNTER → 2016-05-06 | Outpatient (CLI) | payer MEDICARE, OTHER ==
[~2016-05-06] MED LIST: ACET-703 PO; CALC1TAB63 PO; ENOX40P SQ; FOLI5CAP PO; HYDR-3288 PO; METH2.5T PO; WALKER WHEELS/F1 MIS
[2016-05-06 09:53] LABS: AUTOMATED NEUTROPHIL # 1.9 TH/MM3 (1.8-7.7); BASOPHIL % 0.6 % (0.0-2.0); EOSINOPHIL # 0.1 TH/MM3 (0-0.4); EOSINOPHIL % 1.4 % (0.0-4.0); HEMATOCRIT 40.6 % (35.0-46.0); HEMO FLAGS DIFF FINAL; LYMPH % 42.1 % (9.0-44.0); LYMPHOCYTE # 1.8 TH/MM3 (1.0-4.8); MEAN CELL VOLUME 87.1 FL (80.0-100.0); MEAN CORPUSCULAR HEMOGLOBIN 29.3 PG (27.0-34.0); MEAN CORPUSCULAR HGB CONC 33.7 % (32.0-36.0); MONO % 11.9 % (0.0-8.0); PLATELET COUNT 201 TH/MM3 (150-450); RED BLOOD COUNT 4.66 MIL/MM3 (4.00-5.30); RED CELL DISTRIBUTION WIDTH 13.3 % (11.6-17.2); WHITE BLOOD COUNT 4.3 TH/MM3 (4.0-11.0)
[2016-05-06 10:01] LABS: APTT (PATIENT) 23.8 SEC (24.3-30.1); INTERNATIONAL NORMALIZED RATIO 0.9 RATIO; PROTHROMBIN TIME - PATIENT 10.4 SEC (9.8-11.6)
[2016-05-06 10:17] LABS: WESTERGREN SEDIMENTATION RATE 18 mm/hr (0-30)
[2016-05-06 10:23] LABS: ALKALINE PHOSPHATASE 67 U/L (45-117); ALT (GPT) 17 U/L (10-53); ANION GAP 7 MEQ/L (5-15); AST (GOT) 13 U/L (15-37); BLOOD UREA NITROGEN 14 MG/DL (7-18); CHLORIDE 103 MEQ/L (98-107); GLOMERULAR FILTRATION RATE 49 ML/MIN (>89); GLUCOSE,FASTING 81 MG/DL (74-99); POTASSIUM 4.3 MEQ/L (3.5-5.1); SODIUM (NA) 141 MEQ/L (136-145); TOTAL BILIRUBIN ADULT 0.5 MG/DL (0.2-1.0)
[2016-05-06 10:38] LABS: BLOOD, URINE NEG (NEG); COMMENT (UR) CULT NOT INDICATED; CULTURE IF INDICATED CULT NOT INDICATED; GLUCOSE,URINE NEG (NEG); KETONE, URINE NEG (NEG); MUCUS URINE FEW /lpf (OCC); NITRITE,URINE NEG (NEG); SQUAMOUS EPITHELIAL CELL URINE 1 /hpf (0-5); URINE COLOR YELLOW (YELLW/STRAW)
--- NOTE | 2016-05-06 11:49 | RADRPT ---
EXAM DATE/TIME: 05/06/2016 11:36 [facility] COMPARISON: No previous studies available for comparison. INDICATIONS : Evaluate for pneumonia,pneumothorax and communicable diseases. Pre-op hip surgery MEDICAL HISTORY : None. SURGICAL HISTORY : None. ENCOUNTER: Initial ACUITY: 1 day PAIN SCORE: 0/10 LOCATION: chest FINDINGS: PA and lateral views of the chest demonstrate the lungs to be symmetrically aerated without evidence of mass, infiltrate or effusion. The cardiomediastinal contours are unremarkable. Osseous structure s are intact. CONCLUSION: Normal examination. Mariluz Galeas MD on May 06, 2016 at 11:48 Board Certified Radiologist. This report was verified electronically.
== END ==
LOC: CPRE 09:10
PROVIDERS: ATTEND Orthopaedic Surgery Sports Medicine
DX: Z01.810 Encounter for preprocedural cardiovascular examination (principal); Z01.811 Encounter for preprocedural respiratory examination; Z01.812 Encounter for preprocedural laboratory examination; Z01.818 Encounter for other preprocedural examination; Z79.01 Long term (current) use of anticoagulants; Z96.60 Presence of unspecified orthopedic joint implant; M16.12 Unilateral primary osteoarthritis, left hip; M25.50 Pain in unspecified joint
CPT/HCPCS: 36415; 71020; 80053; 81001; 85025; 85610; 85652; 85730